=== PATIENT | male | born 1970 | race Caucasian/White ===

== ENCOUNTER 2019-04-02 21:21 | Emergency (ER) | payer BC ==
[2019-04-02 21:30] VITALS: BP 128/88
--- NOTE | 2019-04-02 22:41 | RADIOLOGY IMAGING REPORT ---
[place] [facility] [place] NAME: Quan Rashid : 1970 MR: [id number] V: [id number] EXAM DATE: ORDERING PHYSICIAN: LEMUEL SCOTT TECHNOLOGIST: Location: [facility] - [place] Patient: Quan Rashid : 1970 Visit/Account:[id number] Date of Sevice: 04/02/2019 EXAMINATION: Three views of the left index finger. HISTORY: Trauma. Struck left index finger with hatchet. COMPARISON: None. FINDINGS: Bones of the left index finger demonstrate normal alignment. No evidence of fracture or dislocation. Joint spaces are preserved. Soft tissue swelling and laceration along the proximal finger. No radiopaque foreign body. IMPRESSION: 1. Soft tissue swelling and laceration along the proximal left index finger. 2. No underlying fracture or radiopaque foreign body. Report Dictated By: Hiren Kim MD at 04/02/2019 10:33 PM Report E-Signed By: Hiren Kim MD at 04/02/2019 10:35 PM WSN:[id number]
--- NOTE | 2019-04-02 22:41 | ER Report ---
History and Physical Time Seen By MD: 21:20 Hx. of Stated Complaint: cut left pointer finger with hatchet, utd on tetanus per pt HPI/ROS CHIEF COMPLAINT: Finger laceration HISTORY OF PRESENT ILLNESS: 48-year-old male was camping, cutting wood with a hatchet, with his dominant right hand, when he struck his left index finger with a hatchet. He does not believe that he had any foreign body OR to the bone. He has normal sensation. He was able to control bleeding with truck pressure. This occurred approximately 2 hours before arrival. Patient drove here from [facility]. He has no lightheadedness, chest pain, difficulty breathing. He has no other injuries. His tetanus is up-to-date as of 2 years ago. REVIEW OF SYSTEMS: Respiratory: No cough, no dyspnea. Cardiovascular: No chest pain, no palpitations. Gastrointestinal: No vomiting, no abdominal pain. Musculoskeletal: No back pain. Allergies: Coded Allergies: No Known Drug Allergies (Unverified , 04/02/19) Constitutional Vital Sign - Last 24 Hours 04/02/19 21:26 Temp 97.9 Pulse 76 Resp 16 B/P (MAP) 122/66 Pulse Ox 97 O2 Delivery Room Air Physical Exam General Appearance: The patient is alert, has no immediate need for airway protection and no current signs of toxicity. [ ] Eyes: Pupils equal and round no injection. Respiratory: normal respirations Cardiac: regular rate and rhythm Musculoskeletal: Extremities have full range of motion and are non tender. Skin: 1.5cm laceration on radial aspect of left index finger at proximal phalanx. Does not cross the joint line of PIP, no active bleeding. Explored to depth, no fb. No b/t/j involvement. Pt has intact cr < 2 sec, lt touch nl, 5/5 flex/ext DIFFERENTIAL DIAGNOSIS: After history and physical exam differential diagnosis was considered for laceration complicated by fracture, foreign body, tendon, nerve, artery involvement Medical Decision Making ED Course/Re-evaluation ED Course 48 m with laceration to left finger. Xray without fx, explored to depth without fb. Repaired without complications. D/c [facility] SRp's. Procedure Procedure: Laceration repair. Verbal consent was obtained from the patient. The 1.5cm laceration on the left index finger was anesthetized in the usual fashion. The wound was irrigated, draped and explored to its base with a gloved finger. [ ] There were no deep structures involved. No tendon injury was identified. The wound was repaired with 6, 4-0 ethilon sutures. The wound repair was simple. The procedure was performed by myself. Decision to Disposition Date: Apr 02, 2019 Decision to Disposition Time: 22:40 Depart Departure Latest Vital Signs Vital Signs Date Time Temp Pulse Resp B/P (MAP) Pulse Ox O2 Delivery O2 Flow Rate FiO2 04/02/19 21:26 97.9 76 16 122/66 97 Room Air Impression: Primary Impression: Finger laceration Condition: Improved Disposition: HOME OR SELF-CARE Patient Instructions: Finger Laceration (ED) Additional Instructions: As we discussed, have your 6 stitches removed in 7-8 days. Change initial bandage in 2 days, then apply bacitracin and bandages daily. Return or follow up for increased swelling, discharge, pain, or any concerns. Problem Qualifiers Primary Impression: Finger laceration Encounter type: initial encounter Finger: index finger Damage to nail status: without damage Foreign body presence: without foreign body Laterality: left Qualified Codes: S61.211A - Laceration without foreign body of left index finger without damage to nail, initial encounter LEMUEL SCOTT MD Apr 02, 2019 22:41
== END 2019-04-02 22:56 | disposition home or self-care (01) ==
LOC: ER 21:38
DX: S61.211A Laceration without foreign body of left index finger without damage to nail, initial encounter (principal)
CPT/HCPCS: 99283